=== PATIENT | female | born 1935 | race Caucasian/White ===

== ENCOUNTER → 2016-12-06 | Outpatient (CLI) | payer MEDICARE ==
--- NOTE | 2016-12-06 11:41 | MM ---
Reason for exam: history of breast cancer, mastectomy. Last mammogram was performed 1 year ago. History: Patient is postmenopausal and has history of bilateral breast cancer at age 78. Malignant left breast needle localization of both breasts, December 28, 2013. Malignant US LT VAD breast biopsy of the left breast, December 15, 2013. Mastectomy of the left breast, 2013. Benign excisional biopsy of the left breast. Benign excisional biopsy of the right breast. Physical Findings: Nurse did not find any significant physical abnormalities on exam. MG 3D Diag Mammo W/Cad RT CC and MLO view(s) were taken of the right breast. Prior study comparison: December 01, 2015, right breast MG 3d diag mammo w/cad RT. November 30, 2014, right breast MG diagnostic mammo RT w CAD. The breast tissue is heterogeneously dense. This may lower the sensitivity of mammography. Asymmetric breast tissue in the upper outer right breast is stable. No significant new findings when compared with previous films. These results were verbally communicated with the patient and result sheet given to the patient on 12/06/16. ASSESSMENT: Benign, BI-RAD 2 RECOMMENDATION: Follow-up diagnostic mammogram of the right breast in 1 year.
== END | disposition home or self-care (01) ==
LOC: RADMAMWWP 10:36
PROVIDERS: ATTEND Internal Medicine Hematology & Oncology
DX: Z08 Encounter for follow-up examination after completed treatment for malignant neoplasm (principal); Z85.3 Personal history of malignant neoplasm of breast
CPT/HCPCS: G0206; G0279

== ENCOUNTER → 2017-03-20 | Outpatient (CLI) | payer MEDICARE | END | disposition home or self-care (01) | LOC: RADBDWWP 11:06 | PROVIDERS: ATTEND Internal Medicine Hematology & Oncology | DX: Z53.9 Procedure and treatment not carried out, unspecified reason (principal) ==

== ENCOUNTER → 2017-12-09 | Outpatient (CLI) | payer MEDICARE ==
--- NOTE | 2017-12-09 08:55 | MM ---
Reason for exam: additional evaluation requested from prior study. Last mammogram was performed 1 year ago. History: Patient is postmenopausal and has history of bilateral breast cancer at age 78. Malignant left breast needle localization of both breasts, December 28, 2013. Malignant US LT VAD breast biopsy of the left breast, December 15, 2013. Mastectomy of the left breast, 2013. Benign excisional biopsy of the left breast. Benign excisional biopsy of the right breast. Physical Findings: Nurse did not find any significant physical abnormalities on exam. MG 3D Diag Mammo W/Cad RT CC and MLO view(s) were taken of the right breast. Prior study comparison: December 06, 2016, right breast MG 3d diag mammo w/cad RT. December 01, 2015, right breast MG 3d diag mammo w/cad RT. Mole posterior medial right breast. No significant new findings when compared with previous films. These results were verbally communicated with the patient and result sheet given to the patient on 12/09/17. ASSESSMENT: Benign, BI-RAD 2 RECOMMENDATION: Follow-up diagnostic mammogram of the right breast in 1 year.
== END | disposition home or self-care (01) ==
LOC: RADMAMWWP 07:35
PROVIDERS: ATTEND Internal Medicine
DX: Z08 Encounter for follow-up examination after completed treatment for malignant neoplasm (principal); Z85.3 Personal history of malignant neoplasm of breast
CPT/HCPCS: 77065; G0279

== ENCOUNTER → 2018-03-20 | Outpatient (CLI) | payer MEDICARE ==
--- NOTE | 2018-03-20 10:52 | BD ---
EXAMINATION TYPE: Axial Bone Density DATE OF EXAM: 03/20/2018 COMPARISON: DEXA bone scan March 19, 2016 CLINICAL HISTORY: Postmenopausal female Height: 62 Weight: 121.9 FRAX RISK QUESTIONS: Alcohol (3 or more units per day): no Family History (Parent hip fracture): no Glucocorticoids (More than 3mos): no (Ex: prednisone, prednisolone, methylprednisolone, dexamethasone, and hydrocortisone). History of Fracture in Adulthood: yes Secondary Osteoporosis: 1. Type 1 Diabetes: no 2. Hyperthyroidism: no 3. Menopause before 45: no 4. Malnutrition: no 5. Chronic liver disease: no Rheumatoid Arthritis: no Current Tobacco Use: no RISK FACTORS HISTORY OF: Family History of Osteoporosis: yes Active: yes Diet low in dairy products/other sources of calcium: no Postmenopausal woman: age 51 Lost more than 2 inches in height since high school: yes Frequent falls: no MEDICATIONS: Femara cecor, vitamins , calcium Thyroid Medications: thyroid How Long: long time Additional History: pt has had breast cancer EXAM MEASUREMENTS: Bone mineral densitometry was performed using the [employer] System. Bone mineral density as measured about the Lumbar spine is: ----- L1-L4(G/cm2): 0.933 T Score Values are as follows: ----- L2: -3.3 ----- L3: -1.5 ----- L4: -1.2 ----- L1-L4: -2.1 Bone mineral density has: decreased -3.6 % since study of: 03.19.2016 Bone mineral density about the R hip (g/cm2): 0.800 Bone mineral density about the L hip (g/cm2): 0.842 T Score values are as follows: -----R Neck: -1.1 -----L Neck: -1.4 -----R Total: -0.9 -----L Total: -1.3 Bone mineral density has: -6.1 % since study of: 03.19.2016 IMPRESSION: Osteopenia (T Score between -2.5 and -1) in the low back and both hips remains present. There remains slightly increased risk of fracture and the patient may be considered for treatment. Re-Screen 2-5 years. NOTE: T-SCORE=SD OF THE YOUNG ADULT MEAN.
== END | disposition home or self-care (01) ==
LOC: RADBDWWP 06:59
PROVIDERS: ATTEND Internal Medicine Hematology & Oncology
DX: C50.212 Malignant neoplasm of upper-inner quadrant of left female breast (principal); M85.88 Other specified disorders of bone density and structure, other site; M85.852 Other specified disorders of bone density and structure, left thigh; M85.851 Other specified disorders of bone density and structure, right thigh; N95.1 Menopausal and female climacteric states; Z79.890 Hormone replacement therapy
CPT/HCPCS: 77080

== ENCOUNTER → 2019-01-01 | Outpatient (CLI) | payer MEDICARE ==
--- NOTE | 2019-01-01 14:34 | MM ---
Reason for exam: additional evaluation requested from prior study. Last mammogram was performed 1 year and 1 month ago. History: Patient is postmenopausal and has history of bilateral breast cancer at age 78. Malignant left breast needle localization of both breasts, December 28, 2013. Malignant US LT VAD breast biopsy of the left breast, December 15, 2013. Mastectomy of the left breast, 2013. Benign excisional biopsy of the left breast. Benign excisional biopsy of the right breast. Physical Findings: Nurse did not find any significant physical abnormalities on exam. MG 3D Diag Mammo W/Cad RT Spot compression CC, spot compression MLO, and LM view(s) were taken of the right breast. Prior study comparison: December 09, 2017, right breast MG 3d diag mammo w/cad RT. December 06, 2016, right breast MG 3d diag mammo w/cad RT. The breast tissue is heterogeneously dense. This may lower the sensitivity of mammography. Focal asymmetry upper inner quadrant appears slightly more defined and incompletely disperses. On spot 3D, however, this does not persist. No significant new findings when compared with previous films. These results were verbally communicated with the patient and result sheet given to the patient on 01/01/19. ASSESSMENT: Negative, BI-RAD 1 RECOMMENDATION: Follow-up diagnostic mammogram of the right breast in 1 year.
== END | disposition home or self-care (01) ==
LOC: RADMAMWWP 12:44
PROVIDERS: ATTEND Internal Medicine
DX: Z08 Encounter for follow-up examination after completed treatment for malignant neoplasm (principal); Z85.3 Personal history of malignant neoplasm of breast
CPT/HCPCS: 77065; G0279; 77061

== ENCOUNTER → 2019-05-22 | Outpatient (CLI) | payer MEDICARE ==
--- NOTE | 2019-05-23 16:22 | ECHOF ---
Referral Reason:I35.0 aortic stenosis MEASUREMENTS -------- HEIGHT: 157.5 cm WEIGHT: 54.4 kg BP: IVSd: 1.1 cm (0.6 - 1.1) LVIDd: 3.3 cm (3.9 - 5.3) LVPWd: 1.0 cm (0.6 - 1.1) IVSs: 1.4 cm LVIDs: 1.1 cm LVPWs: 1.8 cm RVIDd: 2.5 cm (< 3.3) LAESV Index (A-L): 15.92 ml/m Ao Diam: 2.2 cm (2.0 - 3.7) LA Diam: 3.5 cm (2.7 - 3.8) AV Cusp: 1.5 cm (1.5 - 2.6) EPSS: 0.5 cm MV E Yovanny: 0.65 m/s MV DecT: 171 ms MV A Yovanny: 1.13 m/s MV E/A Ratio: 0.58 RAP: 5.00 mmHg RVSP: 34.14 mmHg MV EF SLOPE: 48.90 mm/s (70 - 150) MV EXCURSION: 9.02 mm (> 18.000) FINDINGS -------- Sinus rhythm. This was a technically adequate study. The left ventricular size is normal. There is borderline concentric left ventricular hypertrophy. There is normal global left ventricular contractility. Overall left ventricular systolic function is normal with, an EF between 65 - 70 %. The diastolic filling pattern indicates impaired relaxatio n 11.85. The right ventricle is normal in size. Normal LA size by volume 22+/-6 ml/m2. RA appears enlarged. Aneurysmal Interatrial septum. Aortic valve is trileaflet and is mildly thickened. There is no evidence of aortic regurgitation. There is no evidence of aortic stenosis. No mitral regurgitation. Gmry-[id number] tricuspid regurgitation present. There is borderline pulmonary artery hypertension . The right ventricular systolic pressure, as measured by Doppler, is 34.14mmHg. There is no pulmonic regurgitation present. The aortic root size is normal. Normal inferior vena cava with normal inspiratory collapse consistent with estimated right atrial pre ssure of 5 mmHg. There is no pericardial effusion. CONCLUSIONS -------- 1. Sinus rhythm. 2. This was a technically adequate study. 3. The left ventricular size is normal. 4. There is borderline concentric left ventricular hypertrophy. 5. There is normal global left ventricular contractility. 6. Overall left ventricular systolic function is normal with, an EF between 65 - 70 %. 7. The diastolic filling pattern indicates impaired relaxation 11.85.. 8. The right ventricle is normal in size. 9. Normal LA size by volume 22+/-6 ml/m2. 10. RA appears enlarged. 11. Aneurysmal Interatrial septum. 12. Aortic valve is trileaflet and is mildly thickened. 13. There is no evidence of aortic regurgitation. 14. There is no evidence of aortic stenosis. 15. No mitral regurgitation. 16. Pjzt-yr-hhrwggnx tricuspid regurgitation present. 17. There is borderline pulmonary artery hypertension. 18. The right ventricular systolic pressure, as measured by Doppler, is 34.14mmHg. 19. There is no pulmonic regurgitation present. 20. The aortic root size is normal. 21. Normal inferior vena cava with normal inspiratory collapse consistent with estimated right atrial pressure of 5 mmHg. 22. There is no pericardial effusion. CHRISTMAS BELL RINGER: Toya Denis RDCS
== END | disposition home or self-care (01) ==
LOC: RADECHMAIN 15:17
PROVIDERS: ATTEND Internal Medicine
DX: I07.1 Rheumatic tricuspid insufficiency (principal); I25.3 Aneurysm of heart
CPT/HCPCS: 93306

== ENCOUNTER → 2020-01-13 | Outpatient (CLI) | payer MEDICARE ==
--- NOTE | 2020-01-13 08:13 | MM ---
Reason for exam: additional evaluation requested from prior study. Last mammogram was performed 1 year ago. History: Patient is postmenopausal and has history of bilateral breast cancer at age 78. Malignant left breast needle localization of both breasts, December 28, 2013. Malignant US LT VAD breast biopsy of the left breast, December 15, 2013. Mastectomy of the left breast, 2013. Benign excisional biopsy of the left breast. Benign excisional biopsy of the right breast. Physical Findings: Nurse did not find any significant physical abnormalities on exam. MG 3D Diag Mammo W/Cad RT CC, MLO, and LM view(s) were taken of the right breast. Prior study comparison: January 01, 2019, right breast MG 3d diag mammo w/cad RT. December 09, 2017, right breast MG 3d diag mammo w/cad RT. Benign appearing calcifications in the right breast. No suspicious abnormality. These results were verbally communicated with the patient and result sheet given to the patient on 01/13/20. ASSESSMENT: Benign, BI-RAD 2 RECOMMENDATION: Routine screening mammogram of the right breast in 1 year. Manage on a clinical basis with regard to chronic itching.
== END | disposition home or self-care (01) ==
LOC: RADMAMWWP 06:48
PROVIDERS: ATTEND Internal Medicine
DX: Z08 Encounter for follow-up examination after completed treatment for malignant neoplasm (principal); Z85.3 Personal history of malignant neoplasm of breast
CPT/HCPCS: 77065; G0279; 77061

== ENCOUNTER → 2020-04-27 | Outpatient (CLI) | payer MEDICARE ==
--- NOTE | 2020-04-27 14:38 | BD ---
EXAMINATION TYPE: Axial Bone Density DATE OF EXAM: 04/27/2020 COMPARISON: NONE CLINICAL HISTORY: 84-year-old female postmenopausal screening, postmenopausal symptoms Nuclear Medicine Study in the last 2 weeks: NO Barium Study in the last week: NO : NO Height: 5 FT 2 IN Weight: 124 FRAX RISK QUESTIONS: Alcohol (3 or more units per day): NO Family History (Parent hip fracture): NO Glucocorticoids (More than 3mos): NO (Ex: prednisone, prednisolone, methylprednisolone, dexamethasone, and hydrocortisone). History of Fracture in Adulthood: YES Secondary Osteoporosis: 1. Type 1 Diabetes: NO 2. Hyperthyroidism: NO 3. Menopause before 45: YES 4. Malnutrition: YES 5. Chronic liver disease: NO Rheumatoid Arthritis: NO Current Tobacco Use: NO RISK FACTORS HISTORY OF: Active: YES Postmenopausal woman: PART HYST AGE 43 MEDICATIONS: Thyroid Medications: YES Which medication: LEVOTHYROXINE How Long: YEARS Additional Medications: CALCIUM, ASPIRIN, LEVOTHYROXINE ,FEMARA Additional History: BREAST CANCER LEFT MASTECTOMY EXAM MEASUREMENTS: Bone mineral densitometry was performed using the [employer] System. Bone mineral density as measured about the Lumbar spine is: ----- L1-L4(G/cm2): 1.025 T Score Values are as follows: ----- L2: -2.5 ----- L3: -1.0 ----- L4: 0.0 ----- L1-L4: -1.3 Bone mineral density has: INCREASED 11.8 % since study of: 2018 Bone mineral density about the R hip (g/cm2): 0.895 Bone mineral density about the L hip (g/cm2): 0.893 T Score values are as follows: -----R Neck: -1.0 -----L Neck: -1.0 -----R Total: -0.9 -----L Total: -1.0 Bone mineral density has: INCREASED 2.1 % since study of: 2018 IMPRESSION: Osteopenia (T Score between -2.5 and -1). There is slightly increased risk of fracture and the patient may be considered for treatment. Re-Screen 2-5 years. NOTE: T-SCORE=SD OF THE YOUNG ADULT MEAN.
== END | disposition home or self-care (01) ==
LOC: RADBDWWP 07:42
PROVIDERS: ATTEND Internal Medicine Hematology & Oncology
DX: M85.80 Other specified disorders of bone density and structure, unspecified site (principal); C50.212 Malignant neoplasm of upper-inner quadrant of left female breast; Z79.890 Hormone replacement therapy; N95.1 Menopausal and female climacteric states
CPT/HCPCS: 77080

== ENCOUNTER → 2021-02-23 | Outpatient (CLI) | payer MEDICARE ==
--- NOTE | 2021-02-27 11:22 | MM ---
Reason for exam: screening (asymptomatic). Last mammogram was performed 1 year and 1 month ago. History: Patient is postmenopausal and has history of bilateral breast cancer at age 78. Malignant left breast needle localization of both breasts, December 28, 2013. Malignant US LT VAD breast biopsy of the left breast, December 15, 2013. Mastectomy of the left breast, 2013. Benign excisional biopsy of the left breast. Benign excisional biopsy of the right breast. Physical Findings: A clinical breast exam by your physician is recommended on an annual basis and results should be correlated with mammographic findings. MG 3D Scr Sarah Unilateral W/Cad CC, MLO, and XCCL view(s) were taken of the right breast. Prior study comparison: January 13, 2020, right breast MG 3d diag mammo w/cad RT. January 01, 2019, right breast MG 3d diag mammo w/cad RT. No significant changes when compared with prior studies. ASSESSMENT: Benign, BI-RAD 2 RECOMMENDATION: Routine screening mammogram of the right breast in 1 year.
== END | disposition home or self-care (01) ==
LOC: RADMAMWWP 10:53
PROVIDERS: ATTEND Internal Medicine Hematology & Oncology
DX: Z12.31 Encounter for screening mammogram for malignant neoplasm of breast (principal); Z85.3 Personal history of malignant neoplasm of breast; Z78.0 Asymptomatic menopausal state
CPT/HCPCS: 77067

== ENCOUNTER → 2022-02-26 | Outpatient (CLI) | payer MEDICARE ==
--- NOTE | 2022-02-27 14:52 | MM ---
Reason for exam: screening (asymptomatic). Last mammogram was performed 1 year ago. History: Patient is postmenopausal and has history of bilateral breast cancer at age 78. Malignant left breast needle localization of both breasts, December 28, 2013. Malignant US LT VAD breast biopsy of the left breast, December 15, 2013. Mastectomy of the left breast, 2013. Benign excisional biopsy of the left breast. Benign excisional biopsy of the right breast. Taking antineoplastic beginning at age 78. Physical Findings: A clinical breast exam by your physician is recommended on an annual basis and results should be correlated with mammographic findings. MG 3D Scr Sarah Unilateral W/Cad CC, MLO, and XCCL view(s) were taken of the right breast. Prior study comparison: February 23, 2021, bilateral MG 3d scr sarah unilateral w/cad. January 13, 2020, right breast MG 3d diag mammo w/cad RT. Focal asymmetry right axillary tail. No significant changes when compared with prior studies. ASSESSMENT: Benign, BI-RAD 2 RECOMMENDATION: Routine screening mammogram of the right breast in 1 year.
== END | disposition home or self-care (01) ==
LOC: RADMAMWWP 13:05
PROVIDERS: ATTEND Internal Medicine Hematology & Oncology
DX: Z12.31 Encounter for screening mammogram for malignant neoplasm of breast (principal); Z78.0 Asymptomatic menopausal state; Z85.3 Personal history of malignant neoplasm of breast; Z90.12 Acquired absence of left breast and nipple
CPT/HCPCS: 77067

== ENCOUNTER → 2022-04-30 | Outpatient (CLI) | payer MEDICARE ==
--- NOTE | 2022-04-30 17:41 | BD ---
EXAMINATION TYPE: Axial Bone Density DATE OF EXAM: 04/30/2022 COMPARISON: CLINICAL HISTORY: 86 years year old Female. ICD-10 CODE: Z79.890 POSTMENOPAUSAL WITH HRT Height: 61.5 IN Weight: 130 LBS FRAX RISK QUESTIONS: History of Fracture in Adulthood: RT CLAVICLE FX AGE 81; STERNUM AGE 73 Secondary Osteoporosis: 3. Menopause before 45: PARTIAL HYST AGE 44 RISK FACTORS HISTORY OF: Active: YES Postmenopausal woman: PARTIAL HYST AGE 44 Lost more than 2 inches in height since high school: YES 11/12" MEDICATIONS: Thyroid Medications: YES Which medication: LEVOXYL How Lon+ YEARS Additional Medications: CENTRUM SILVER, CALCIUM, VIT D, LEVOXYL, VALSARTAN, ASA, FEMARA,AMLODIPINE, R OSUVASTATIN Additional History: BREAST CANCER EXAM MEASUREMENTS: Bone mineral densitometry was performed using the [employer] System. Bone mineral density as measured about the Lumbar spine is: ----- L1-L4(G/cm2): 1.003 T Score Values are as follows: ----- L1: -2.3 ----- L2: -3.1 ----- L3: -0.5 ----- L4: -0.5 ----- L1-L4: -1.5 Bone mineral density has: Decreased -3.1% since study of: 04/27/2020 Bone mineral density about the R hip (g/cm2): 0.848 Bone mineral density about the L hip (g/cm2): 0.839 T Score values are as follows: -----R Neck: -1.4 -----L Neck: -1.4 -----R Total: -1.1 -----L Total: -1.6 Bone mineral density has: Decreased -5.6% since study of: 04/27/2020 FRAX%s: The graph provided illustrates a 19.0 chance for a major osteoporotic fx and a 4.6 chance for the hips probability for fx in 10 years time. IMPRESSION: Osteopenia (T Score between -2.5 and -1). There is slightly increased risk of fracture and the patient may be considered for treatment. Re-Screen 2-5 years. NOTE: T-SCORE=SD OF THE YOUNG ADULT MEAN.
== END | disposition home or self-care (01) ==
LOC: RADBDWWP 13:13
PROVIDERS: ATTEND Internal Medicine Hematology & Oncology
DX: M81.0 Age-related osteoporosis without current pathological fracture (principal); M85.89 Other specified disorders of bone density and structure, multiple sites; Z78.0 Asymptomatic menopausal state
CPT/HCPCS: 77080

== ENCOUNTER → 2023-03-21 | Outpatient (CLI) | payer MEDICARE ==
--- NOTE | 2023-03-22 19:33 | MM ---
Reason for Exam: Screening (asymptomatic). Last mammogram was performed 1 year(s) and 1 month(s) ago. Patient History: Menarche at age 14. First Full-Term at age 24. Left ovary removed at age 51. Hysterectomy at age 51. Postmenopausal. Breast cancer, left, age 78. Benign Excisional Biopsy on the right side. Benign Excisional Biopsy on the left side. 2013, Mastectomy on the Left side. 12/28/2013, Bilateral Malignant Excisional Biopsy. 12/15/2013, Malignant Core Biopsy on the left side. Prior Study Comparison: 12/06/2016 Right Diagnostic Mammogram, [facility]. 12/09/2017 Right Diagnostic Mammogram, [facility]. 01/01/2019 Right Diagnostic Mammogram, [facility]. 01/13/2020 Right Diagnostic Mammogram, [facility]. 02/23/2021 Bilateral Screening Mammogram, [facility]. 02/26/2022 Bilateral Screening Mammogram, [facility]. Tissue Density: Right: There are scattered fibroglandular densities. Findings: Analyzed By CAD. There is no suspicious group of microcalcifications or new suspicious mass in either breast. Overall Assessment: Benign, BI-RAD 2 Management: Screening Mammogram of the right breast in 1 year. Patient should continue monthly self-breast exams. A clinical breast exam by your physician is recommended on an annual basis. This exam should not preclude additional follow-up of suspicious palpable abnormalities. Electronically signed and approved by: Stoney Webb M.D. Radiologist
== END | disposition home or self-care (01) ==
LOC: RADMAMWWP 13:33
PROVIDERS: ATTEND Internal Medicine Hematology & Oncology
DX: Z12.31 Encounter for screening mammogram for malignant neoplasm of breast (principal); Z78.0 Asymptomatic menopausal state; Z85.3 Personal history of malignant neoplasm of breast; Z90.12 Acquired absence of left breast and nipple; Z98.890 Other specified postprocedural states
CPT/HCPCS: 77067

== ENCOUNTER → 2024-03-23 | Outpatient (CLI) | payer MEDICARE ==
--- NOTE | 2024-03-23 13:56 | MM ---
Reason for Exam: Additional evaluation requested from prior study. Last screening mammogram was performed 12 month(s) ago. Patient History: Menarche at age 14. First Full-Term at age 24. Left ovary removed at age 51. Hysterectomy at age 51. Postmenopausal. Breast cancer, left, age 78. Benign Excisional Biopsy on the right side. Benign Excisional Biopsy on the left side. 2013, Mastectomy on the Left side. 12/28/2013, Bilateral Malignant Excisional Biopsy. 12/15/2013, Malignant Core Biopsy on the left side. Prior Study Comparison: 02/23/2021 Bilateral Screening Mammogram, [facility]. 02/26/2022 Bilateral Screening Mammogram, [facility]. 03/21/2023 Right MG 3D screening mammo w/cad, [facility]. Tissue Density: Right: The breasts are heterogeneously dense, which may obscure small masses. Findings: Analyzed By CAD. Vague focal asymmetry possibly 2:00 position right breast estimated to measure 1.3 cm becomes less defined on additional views. Further ultrasound evaluation recommended. Benign oil cyst calcification redemonstrated. Overall Assessment: Incomplete: need additional imaging evaluation, BI-RAD 0 Management: Diagnostic Breast Ultrasound of the right breast. Electronically signed and approved by: Stoney Webb M.D. Radiologist
--- NOTE | 2024-03-23 15:28 | USB ---
Reason for Exam: Additional evaluation requested from prior study. Patient History: Menarche at age 14. First Full-Term at age 24. Left ovary removed at age 51. Hysterectomy at age 51. Postmenopausal. Breast cancer, left, age 78. Benign Excisional Biopsy on the right side. Benign Excisional Biopsy on the left side. 2013, Mastectomy on the Left side. 12/28/2013, Bilateral Malignant Excisional Biopsy. 12/15/2013, Malignant Core Biopsy on the left side. Technique: Method: Targeted. Prior Study Comparison: 02/23/2021 Bilateral Screening Mammogram, [facility]. 02/26/2022 Bilateral Screening Mammogram, [facility]. 03/21/2023 Right MG 3D screening mammo w/cad, [facility]. Findings: The upper inner quadrant of the right breast, the axilla of the right breast and the retroareolar of the right breast were scanned. Targeted ultrasound right breast upper inner quadrant 12:00 to 3:00 including scanning of the subareolar region and axilla. No solid or cystic lesion. No axillary lymphadenopathy.. Overall Assessment: Probably benign, BI-RAD 3 Management: Diagnostic Mammogram of the right breast in 6 months. A clinical breast exam by your physician is recommended on an annual basis and results should be correlated with mammographic findings. This exam should not preclude additional follow-up of suspicious palpable abnormalities. Results were given to the patient verbally at the time of exam. Electronically signed and approved by: Stoney Webb M.D. Radiologist
== END | disposition home or self-care (01) ==
LOC: RADMAMWWP 13:06
PROVIDERS: ATTEND Internal Medicine Hematology & Oncology
DX: C50.212 Malignant neoplasm of upper-inner quadrant of left female breast (principal); E03.9 Hypothyroidism, unspecified; M85.9 Disorder of bone density and structure, unspecified; E78.2 Mixed hyperlipidemia; Z78.0 Asymptomatic menopausal state
CPT/HCPCS: 77065; 76642; G0279; 77061

== ENCOUNTER → 2024-05-01 | Outpatient (CLI) | payer MEDICARE ==
--- NOTE | 2024-05-05 15:40 | BD ---
EXAMINATION TYPE: Axial Bone Density DATE OF EXAM: 05/01/2024 CLINICAL HISTORY: 88 years old Female. ICD-10 CODE: M85.9 DISORDER OF BONE DENSITY AND STRUCTURE Height: 61" Weight: 135.5lbs FRAX RISK QUESTIONS: Alcohol (3 or more units per day): No Family History (Parent hip fracture): No Glucocorticoids (More than 3mos): No (Ex: prednisone, prednisolone, methylprednisolone, dexamethasone, and hydrocortisone). History of Fracture in Adulthood: Yes Secondary Osteoporosis: 1. Type 1 Diabetes: No 2. Hyperthyroidism: No 3. Menopause before 45: Yes 4. Malnutrition: No 5. Chronic liver disease: No Rheumatoid Arthritis: No Current Tobacco Use: No RISK FACTORS HISTORY OF: Hip Fracture (Right/Left): No Spine Fracture: No History of Wrist Fracture: No Surgery to Spine/Hip(right/left)/Wrist (right/left): No MEDICATIONS: Thyroid Medications: No Which medication: Levothyroxine How Long: Many years Osteoporosis Medications: Which medication: How Long: EXAM MEASUREMENTS: Bone mineral densitometry was performed using the [employer] System. Bone mineral density as measured about the Lumbar spine is: ----- L1-L4(G/cm2): 0.951 T Score Values are as follows: ----- L1: -2.8 ----- L2: -3.3 ----- L3: -1.3 ----- L4: -0.6 ----- L1-L4: -1.9 Z Score Values are as follows: ----- L1: -0.7 ----- L2: -1.3 ----- L3: 0.8 ----- L4: 1.5 ----- L1-L4: 0.1 Bone mineral density has: decreased -5.2% since study of: 04/30/2022 Bone mineral density about the R hip (g/cm2): 0.887 Bone mineral density about the L hip (g/cm2): 0.825 T Score values are as follows: -----R Neck: -1.6 -----L Neck: -1.0 -----R Total: -1.0 -----L Total: -1.4 Z Score values are as follows: -----R Neck: 1.0 -----L Neck: 1.5 -----R Total: 1.5 -----L Total: 1.0 Bone mineral density has: increased 2.1% since study of: 04/30/2022 FRAX%s: The graph provided illustrates a 13.4% chance for a major osteoporotic fx and a 3.8% chance f or the hips probability for fx in 10 years time. IMPRESSION: Osteopenia (T Score between -2.5 and -1). There is slightly increased risk of fracture and the patient may be considered for treatment. Re-Screen 2-5 years. NOTE: T-SCORE=SD OF THE YOUNG ADULT MEAN.
== END | disposition home or self-care (01) ==
LOC: RADBDWWP 13:31
PROVIDERS: ATTEND Internal Medicine Hematology & Oncology
DX: C50.212 Malignant neoplasm of upper-inner quadrant of left female breast (principal); M85.88 Other specified disorders of bone density and structure, other site; E78.2 Mixed hyperlipidemia
CPT/HCPCS: 77080

== ENCOUNTER → 2024-09-23 | Outpatient (CLI) | payer MEDICARE ==
--- NOTE | 2024-09-23 08:07 | MM ---
Reason for Exam: Follow-up at short interval from prior study. Last screening mammogram was performed 6 month(s) ago. Patient History: Menarche at age 14. First Full-Term at age 24. Left ovary removed at age 51. Hysterectomy at age 51. Postmenopausal. Breast cancer, left, age 78. Benign Excisional Biopsy on the right side. Benign Excisional Biopsy on the left side. 2013, Mastectomy on the Left side. 12/28/2013, Bilateral Malignant Excisional Biopsy. 12/15/2013, Malignant Core Biopsy on the left side. Prior Study Comparison: 02/26/2022 Bilateral Screening Mammogram, [facility]. 03/21/2023 Right MG 3D screening mammo w/cad, [facility]. 03/23/2024 Right MG 3D diag mammo w/cad RT, [facility]. Tissue Density: Right: There are scattered areas of fibroglandular density. Findings: Analyzed By CAD. The pattern is stable. Benign coarse calcifications within the left breast. Attention is made to the anterior left breast. No persistent suspicious focal asymmetry is evident. No suspicious spiculated or lobular masses. No suspicious groups of microcalcifications, spiculated or lobular masses, architectural distortion or other secondary signs of malignancy are mammographically apparent. Overall Assessment: Benign, BI-RAD 2 Management: Screening Mammogram of the right breast in 6 months. A negative mammogram report should not preclude additional follow up of suspicious palpable abnormalities. Patient should continue monthly self breast exam. A clinical breast exam by your physician is recommended on an annual basis and results should be correlated with mammographic findings. Note on Kalie scores and lifetime risk: 1. A Kalie score greater than 3% is considered moderate risk. If this is the case, consider specialist referral to assess eligibility for a risk reducing agent. 2. If overall lifetime risk for the development of breast cancer is 20% or higher, the patient may qualify for future screening with alternating mammogram and breast MRI. [facility], , 09/23/2024 8:04 AM. Electronically signed and approved by: Jt Polo D.O. Radiologis
== END | disposition home or self-care (01) ==
LOC: RADMAMWWP 07:44
PROVIDERS: ATTEND Internal Medicine Hematology & Oncology
DX: R92.8 Other abnormal and inconclusive findings on diagnostic imaging of breast (principal); Z78.0 Asymptomatic menopausal state; Z90.722 Acquired absence of ovaries, bilateral; Z85.3 Personal history of malignant neoplasm of breast; R92.321 Mammographic fibroglandular density, right breast; Z90.13 Acquired absence of bilateral breasts and nipples
CPT/HCPCS: 77065; G0279; 77061

== ENCOUNTER → 2025-03-24 | Outpatient (CLI) | payer MEDICARE ==
--- NOTE | 2025-03-24 09:30 | MM ---
Reason for Exam: Hx of breast cancer, mastectomy. Last screening mammogram was performed 6 month(s) ago. Patient History: Menarche at age 14. First Full-Term at age 24. Left ovary removed at age 51. Hysterectomy at age 51. Postmenopausal. Breast cancer, left, age 78. Benign Excisional Biopsy on the right side. Benign Excisional Biopsy on the left side. 2013, Mastectomy on the Left side. 12/28/2013, Bilateral Malignant Excisional Biopsy. 12/15/2013, Malignant Core Biopsy on the left side. Prior Study Comparison: 12/09/2017 Right Diagnostic Mammogram, [facility]. 01/01/2019 Right Diagnostic Mammogram, [facility]. 01/13/2020 Right Diagnostic Mammogram, [facility]. 02/23/2021 Bilateral Screening Mammogram, [facility]. 02/26/2022 Bilateral Screening Mammogram, [facility]. 03/21/2023 Right MG 3D screening mammo w/cad, [facility]. 03/23/2024 Right MG 3D diag mammo w/cad RT, [facility]. 09/23/2024 Right MG 3D diag mammo w/cad RT, [facility]. Tissue Density: Right: The breasts are heterogeneously dense, which may obscure small masses. Findings: There are 2 adjacent benign-appearing dystrophic calcifications in the right breast are redemonstrated. There is no suspicious group of microcalcifications or new suspicious mass in the right breast. Overall Assessment: Benign, BI-RAD 2 Management: Screening Mammogram of the right breast in 1 year. . Patient should continue monthly self-breast exams. A clinical breast exam by your physician is recommended on an annual basis. This exam should not preclude additional follow-up of suspicious palpable abnormalities. Note on Kalie scores and lifetime risk: 1. A Kalie score greater than 3% is considered moderate risk. If this is the case, consider specialist referral to assess eligibility for a risk reducing agent. 2. If overall lifetime risk for the development of breast cancer is 20% or higher, the patient may qualify for future screening with alternating mammogram and breast MRI. [facility], , 03/24/2025 9:26 AM. Electronically signed and approved by: Uri Abraham M.D.
== END | disposition home or self-care (01) ==
LOC: RADMAMWWP 08:18
PROVIDERS: ATTEND Internal Medicine Hematology & Oncology
DX: Z12.31 Encounter for screening mammogram for malignant neoplasm of breast (principal); R92.331 Mammographic heterogeneous density, right breast; E03.9 Hypothyroidism, unspecified; M85.9 Disorder of bone density and structure, unspecified; E78.2 Mixed hyperlipidemia; C50.212 Malignant neoplasm of upper-inner quadrant of left female breast; R92.1 Mammographic calcification found on diagnostic imaging of breast; Z78.0 Asymptomatic menopausal state; Z85.3 Personal history of malignant neoplasm of breast; Z90.12 Acquired absence of left breast and nipple
CPT/HCPCS: 77067